=== PATIENT | male | born 1970 | race Caucasian/White ===

== ENCOUNTER 2018-10-03 05:26 | Inpatient (IN) ==
[2018-10-03] MEDS ORDERED: Chlorhexidine Gluconate 2% 1 Pack (2 Cloths) TOPICAL ONE (05:53)
[2018-10-03] MEDS ORDERED: Metoprolol Tartrate 25 MG Tablet PO ONE (05:53)
[2018-10-03] MEDS ORDERED: Sodium Chlor 0.9% Inj 500 ML IV.SIG SCH (06:00)
[2018-10-03] MEDS ORDERED: Chlorhexidine 4% Topical 120 APPLIC/120 ML Bottle TOPICAL SCH (06:00)
[2018-10-03] MEDS ORDERED: Vancomycin Inj 1,000 MG in Sodium Chlor 0.9% Inj 250 ML IV.SIG SCH (06:00)
[2018-10-03] MEDS ORDERED: ceFAZolin 2 GM Premix Inj 2 GM/50 ML PIGGYBACK IV.SIG SCH (06:00)
[2018-10-03] MEDS ORDERED: SODIUM CHLOR 0.9% IV.SIG SCH (07:30)
[2018-10-03] MEDS ORDERED: Sodium Chlor 0.9% Inj 40 ML, Bupivacaine Liposo PF 1.3% Inj 20 ML P-ARTICULR SCH ×2 (07:30)
[2018-10-03] MEDS ORDERED: TRANEXAMIC ACID IV.SIG SCH (07:30)
[2018-10-03] MEDS ORDERED: Post-op Orders (for Pharmacy) OTHER STA (08:09)
[2018-10-03] MEDS ORDERED: Bisacodyl 10 MG Supp RECTAL PRN (08:09)
--- NOTE | 2018-10-03 08:09 | P.DCO ---
- Physical Therapy Physical Therapy: Gait training (3 times per week for 2 weeks) Hip: Total hip, Protocol: Right Right Lower Extremity Weight Bearing: Weight bearing as tolerated - Certification Need for Home Health services: I have seen patient Jose E Del Real on 10/03/18. My clinical findings support the need for the requested home health care services because: Need for Home Health Services: High risk of falls Homebound Certification: I certify that my clinical findings support that this patient is homebound because: Homebound Certification: Unsteady gait/balance
[2018-10-03] MEDS ORDERED: Bupivacaine/Epinephrine Inj 0.25% 50 ML Vial ONE (08:15)
[2018-10-03] MEDS ORDERED: [UNRECOGNIZED DRUG - OTHER] P-ARTICULR SCH ×3 (09:00)
[2018-10-03] MEDS ORDERED: BUPIVACAINE LIPOSO 1.3% P-ARTICULR SCH ×3 (09:00)
[2018-10-03] MEDS ORDERED: Morphine Inj 4 MG/ML Vial IV.PUSH PRN (09:00)
[2018-10-03] MEDS ORDERED: SODIUM CHLOR 0.9% P-ARTICULR SCH ×3 (09:00)
--- NOTE | 2018-10-03 10:00 | P.OP ---
- Preoperative Diagnosis (1) Osteoarthritis of right hip - Postoperative Diagnosis (1) Osteoarthritis of right hip Date of procedure: 10/03/18 Procedure: Right total hip arthroplasty, direct anterior exposure Anesthesia: GETA, local Surgeon: Maxime Magdaleno MD Armored Car Driver: Sari Whitlock PA-C Operation and Findings: EBL: 600 cc INDICATION: This patient is a 48-year-old white male with severe osteoarthritis of the right hip. 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 Despite extensive conservative care, the patient continued to be painful and symptomatic. He presents for surgical treatment. NOTE: Sari Whitlock PA-C was present for the entire surgical procedure as my shipping assistant. In my medical opinion her skill and care was necessary for the proper management of this patient. COMPONENTS: COMPANY: [employer] CUP: [place], 56 mm, 100 series STEM: Corail, size 13, high offset HEAD: Ceramic, +1.5, /14 taper LINER: Altrex, 36, neutral PROCEDURE: This patient was brought to the operating room and anesthetized in the supine position. The patient was positioned on the [place] table with the operative leg extended and the contralateral leg held in proper position. The hip and leg was scrubbed with alcohol followed by Hibiclens followed by ChloraPrep and draped sterilely in the clean air suite. Preoperative fluoroscopic images were utilized. A templating x-ray was obtained and printed to be used during the case. A timeout was done and antibiotics were given within a routine time window. A 4 inch incision was made starting 2 cm distal and 2 cm lateral to the anterior superior iliac spine. The tensor fascia tutu fascia was identified and opened longitudinally in line with the incision. Deep retraction allowed good visualization in the interval between the tensor fascia tutu and the rectus and this was opened further. The posterior fascia was opened. Crossing vessels were coagulated appropriately. The anterior aspect of the hip capsule was identified. Retractors were placed above and below the capsule. The capsule was opened longitudinally. Stay sutures were utilized creating flaps for the anterior capsule. The femoral neck was cut at the right location and completed with an oscillating saw. The head and neck was removed and taken to the back table. The leg was externally rotated 60 degrees and traction placed on the extremity. The labrum was excised. A portion of the capsule was excised. Visibility was excellent. Retractors were positioned. Starting 6 mm from the final size reamer, we began reaming up to 1 mm from the anticipated size. This was visualized under fluoroscopy. A trial cup was positioned. This also was visualized under fluoroscopy and minor adjustments were made. The final preparation with a 56 reamer was utilized. The final cup was positioned in approximately 40 degrees of abduction and 20 degrees of forward flexion. This is visualized under fluoroscopy and was seated into the final position. Position was very satisfactory. A single hole eliminator was positioned followed by the plastic liner. The final solution was excellent. Traction was let off. The leg was brought into neutral rotation. A lifting took was positioned underneath the greater trochanter and proximal femur. The leg was maximally externally rotated and the foot drop to the floor across midline. Retractors were positioned. A box osteotome was used to gain entrance into the top of the femur. The canal was probed with a finder to ensure that we were within the canal. Successive broaching up to the final stem size was accomplished. Trial reduction showed excellent balancing. Adjustments were made. The wound was irrigated copiously and the canal irrigated. The final stem was inserted in proper orientation. A final trial reduction was performed, and the final head was impacted. The hip was reduced and with 60 degrees of external rotation the leg to be dropped to the floor without evidence of anterior subluxation. Intraoperative x-rays were obtained. Local anesthesia was utilized for a field block including posterior capsule, inferior capsule, cephalad capsule, region of the greater trochanter, tensor fascia tutu and subcutaneous tissue. The anterior capsule was repaired with interrupted #2 Tycron sutures. The fascia was run with 0 PDS on a loop. Subcutaneous tissue was approximated 2-0 Vicryl suture and skin with running intradermal 3-0 Vicryl followed by benzoin and Steri-Strips. A sterile dressing was applied. The patient was awakened and taken to the recovery room in satisfactory condition FINDINGS: There was severe osteoarthritis of the right hip. There was a detached and torn labrum in addition. Large circumferential osteophytes were noted which were removed. Final solution appeared to be excellent.
--- NOTE | 2018-10-03 10:13 | XR ---
EXAM DATE: 10/03/2018 10:04 AM EST AGE/SEX: 48 years / Male INDICATIONS: Post-op total right hip arthroplasty. CLINICAL DATA: This is the patient's initial encounter. Patient reports that signs and symptoms have been present for 1 day and indicates a pain score of Nonresponsive. MEDICAL/SURGICAL HISTORY: Non-responsive. Non-responsive. COMPARISON: No prior exams available for comparison. FINDINGS: Right total hip arthroplasty has been performed and the prosthesis appears to be adequate in position . CONCLUSION: Status post right total hip arthroplasty with prosthesis in good position. Electronically signed by: Theron Wilburn MD Board Certified Radiologist 10/03/2018 10:11 AM EST
[2018-10-03] MEDS ORDERED: *morphine SULFATE 10 MG/ML PERIprocedure ONLY ONE ×2 (10:29→10:44)
[2018-10-03] MEDS ORDERED: fentaNYL Citrate Inj 100 MCG/2 ML Ampul ONE ×2 (10:29→10:30)
[2018-10-03] MEDS: Senna/Docusate Sodium 8.6/50 MG Tablet PO SCH ×2 (11:05→21:16)
[2018-10-03] MEDS: Multivitamin/Minerals Therapeutic Tablet PO SCH ×2 (11:05→21:16)
[2018-10-03] MEDS ORDERED: *morphine SULFATE 4 MG/ML PERIprocedure ONLY ONE (11:07)
[2018-10-03] MEDS ORDERED: ceFAZolin Inj 1 GM in Sodium Chloride 0.9% Inj 100 ML IV.SIG SCH (14:00)
[2018-10-03] MEDS ORDERED: ceFAZolin 1 GM Premix Inj 1 GM/50 ML PIGGYBACK IV.SIG ONE (14:08)
[2018-10-03] MEDS: ceFAZolin Inj 1 GM in Sodium Chlor 0.9% Inj 100 ML IV.SIG SCH ×2 (14:11→21:23)
[2018-10-03] MEDS ORDERED: Temazepam 15 MG Capsule PO PRN (21:00)
--- NOTE | 2018-10-03 21:53 | P.DS ---
Date of admission: 10/03/18 05:26 Primary care physician: Julito Prasad MD Attending physician on discharge: Maxime Magdaleno Anticipated date of discharge: 10/04/18 Brief History from admission: Mr. Del Real has had ongoing right hip pain.... DS: Diagnosis - Discharge Diagnosis (1) Osteoarthritis of right hip Status: Acute DS: Medications - Discharge Medications Prescriptions: aspirin 81 mg PO BID 30 Days #60 tab hydrocodone-acetaminophen 1 tab PO Q4H PRN #42 tab PRN Reason: Acute Pain DS: Summary Hospital Course: Surgical treatment was accomplished on the day of admission without complication.. pod#1, [place], ASA, hhc - Time Spent with Patient Total time spent providing and/or coordinating discharge services: - Quality: VTE Deep Vein Thrombosis/Pulmonary Embolism Present on Admission: No Exam Vital signs: Vital Signs 10/03/18 06:17 10/03/18 10:21 10/03/18 10:23 Temperature 98.5 F 98.1 F Pulse Rate 72 72 73 Respiratory Rate 16 13 Blood Pressure 136/79 115/59 L Pulse Oximetry 97 98 100 10/03/18 10:30 10/03/18 10:45 10/03/18 11:00 Temperature Pulse Rate 68 71 77 Respiratory Rate 13 14 12 Blood Pressure 103/55 L 103/54 L Pulse Oximetry 100 93 L 98 10/03/18 11:01 10/03/18 11:15 10/03/18 11:16 Temperature Pulse Rate 68 76 74 Respiratory Rate 11 L 19 16 Blood Pressure 125/60 113/56 L Pulse Oximetry 97 99 100 10/03/18 11:30 10/03/18 11:45 10/03/18 12:00 Temperature 98.1 F Pulse Rate 70 71 74 Respiratory Rate 10 L 8 L 8 L Blood Pressure 114/57 L 117/59 L 118/56 L Pulse Oximetry 98 97 97 10/03/18 12:15 10/03/18 12:16 10/03/18 12:17 Temperature Pulse Rate 64 68 69 Respiratory Rate 13 16 10 L Blood Pressure 84/46 L 81/46 L Pulse Oximetry 93 L 95 93 L 10/03/18 12:18 10/03/18 12:21 10/03/18 12:30 Temperature Pulse Rate 69 75 74 Respiratory Rate 9 L 9 L 12 Blood Pressure 90/55 L 90/51 L 107/57 L Pulse Oximetry 93 L 95 96 10/03/18 12:45 10/03/18 13:00 10/03/18 13:15 Temperature Pulse Rate 86 91 H 71 Respiratory Rate 22 18 9 L Blood Pressure 104/64 Pulse Oximetry 96 90 L 91 L 10/03/18 13:30 10/03/18 13:45 10/03/18 14:00 Temperature Pulse Rate 62 73 79 Respiratory Rate 7 L 11 L 13 Blood Pressure 113/59 L 119/75 Pulse Oximetry 99 91 L 98 10/03/18 14:08 10/03/18 14:09 10/03/18 14:10 Temperature Pulse Rate 101 H 97 H Respiratory Rate 18 25 H Blood Pressure 108/60 89/54 L Pulse Oximetry 10/03/18 14:13 10/03/18 14:15 10/03/18 14:30 Temperature Pulse Rate 75 75 65 Respiratory Rate 13 11 L 8 L Blood Pressure 115/63 Pulse Oximetry 90 L 98 95 10/03/18 15:00 10/03/18 15:35 10/03/18 16:00 Temperature 97.9 F Pulse Rate 75 75 87 Respiratory Rate 10 L 11 L 22 Blood Pressure 119/74 132/66 Pulse Oximetry 98 93 L 97 10/03/18 17:21 Temperature 97.8 F Pulse Rate 77 Respiratory Rate 18 Blood Pressure 128/71 Pulse Oximetry 95 Intake & Output 10/03/18 10/03/18 10/04/18 06:59 18:59 06:59 Intake Total 100 / 100 Balance 100 / 100 Weight 116.8 kg Intake: IV 100 / 100 Ancef Inj 1 GM In NS Inj 100 ML 100 / 100 @ 200 mls/hr IV.SIG Q6H [facility] Rx #:[id number] Other: Date of Last Bowel Movement 10/03/18 Weight On Admission 116.8 kg Results Labs on day of discharge: Labs from last 24 hours 10/03/18 06:08 Blood Type O Positive Blood Type Recheck Required Antibody Screen Negative - Impressions ITS Impressions Hip X-Ray 10/03/18 00:00 CONCLUSION: Status post right total hip arthroplasty with prosthesis in good position. Discharge Plan - Discharge Disposition Patient Disposition: W/Home Health Service - Discharge Condition Condition: Good - Discharge Order Discharge Orders: Discharge Order (Routine); Ordered 01/09/19 Ordered By: Maxime C Gillespy - Physicians Team Primary Care Provider: Julito Prasad Attending Provider: Maxime Magdaleno - Rxs /Orders / Referrals /Forms Prescriptions: New aspirin 81 mg Tablet,Chewable 81 mg PO BID 30 Days Qty: 60 RF: 0 hydrocodone-acetaminophen 10-325 mg Tablet 1 tab PO Q4H PRN (Reason: Acute Pain) Qty: 42 RF: 0 No Action No Known Home Medications Referrals: Julito Prasad MD [Primary Care Provider] - See Instructions - Post Discharge Care Plan Care Plan Goals: Discharge Care Plan Goals for RIGHT Total Hip Replacement You had a hip replacement surgery. This means your natural hip was replaced with an artificial joint (prosthesis). You may be recovering at home or in a rehabilitation facility. Either way, you must take care of your new hip. Here are some goals to help you heal well. Directions to Meet your Goals: 1. Activity & Exercises: * Take pain medicine as directed by your doctor. * Dont drive until your doctor says its OK. And never drive while taking opioid pain medicine. * Wear the support stockings you were given in the hospital as directed by your surgeon. * Dont sit for more than 30 to 45 minutes at one time. * Dont lean forward while sitting. * Dont cross your legs. * Keep your feet flat on the floor. Dont turn your foot or leg inward. This stresses your hip joint. * If needed, use an elevated toilet seat for 4 weeks after surgery. * Nap if you are tired, but dont stay in bed all day. * Sit on a firm cushion when you ride in a car and avoid sitting too low. Try not to bend your hip too much when getting in and out of the car. 2. Prevent Falls/Injury: * Follow your doctors orders regarding how much weight to put on the affected leg. * Dont bend at the hip when you bend over. Don't bend at the waist to put on socks and shoes. And avoid picking up items from the floor. * Use a cane, crutches, a walker, or handrails until your balance, flexibility, and strength improve. And remember to ask for help from others when you need it. * Free up your hands so that you can use them to keep balance. Use a timbo pack , apron, or pockets to carry things. * Arrange your household to keep the items you need handy. Keep everything else out of the way. * Remove items that may cause you to fall, such as throw rugs and electrical cords. * Use nonslip bath mats, grab bars, an elevated toilet seat, and a shower chair in your bathroom * Sit on a shower stool or chair when you shower to keep from falling. 3. Precautions: * Prevent infection. Any infection will need to be treated immediately. Call your doctor right away if you think you might have an infection. * Tell your dentist that you have an artificial joint and take antibiotics as prescribed before any dental work. * Tell all your healthcare providers about your artificial joint before any medical procedure. * Maintain a healthy weight. Get help to lose any extra pounds. Added body weight puts stress on the joints. 4. Incision Care: * Prevent infection by washing your hands often. If an infection occurs, it will need to be treated right away. * Call your doctor right away if you think you may have an infection. Symptoms include a fever or an incision that leaks white, green, or yellow fluid. * Don't soak your incision in water until your doctor says its OK. This means no hot tubs, bathtubs, or swimming pools. * Follow your doctor's instructions for changing the dressing. * Dont rub the incision, or apply creams or lotions to it. * If you notice any redness or drainage around the bandage site, contact your surgeon's office immediately. 5. Follow-Up: Do Not miss your follow-up appointment. Keep up with all your appointments and yearly check ups When to call your doctor: Call your doctor right away if you have: Hip pain gets worse Pain or swelling in your calf or leg not related to your incision Tenderness or redness in your calf Fever of 100.4F (38C) or higher, or as directed by your healthcare provider Shaking chills Swelling or redness at the incision site gets worse Fluid draining from the incision Call 911: Call 911 right away if you have: Chest pain Shortness of breath Any pain or tenderness in your calf
[2018-10-04] MEDS: ceFAZolin Inj 1 GM in Sodium Chlor 0.9% Inj 100 ML IV.SIG SCH ×3 (01:39→09:51)
[2018-10-04 07:00] LABS: Hematocrit 29.6 % (39.0-51.0)
[2018-10-04 07:08] VITALS: RESP 17
[2018-10-04 09:31] VITALS: BP 119/56; PULSE 113; TEMP 98.5; O2SAT 95
[2018-10-04] MEDS: Senna/Docusate Sodium 8.6/50 MG Tablet PO SCH (09:49)
[2018-10-04] MEDS: Multivitamin/Minerals Therapeutic Tablet PO SCH (09:49)
--- NOTE | 2018-10-04 13:58 | P.PNOP ---
Subjective Interval history: He is doing well. He has already walked the hallway a few times this morning. He denies any nausea. He states he has pain in the hip but feels good. No new CP or SOB. He has questions about surgery. Physical Exam Vital signs: Vital Signs 10/03/18 14:00 10/03/18 14:08 10/03/18 14:09 Temperature Pulse Rate 79 101 H 97 H Respiratory Rate 13 18 25 H Blood Pressure 119/75 108/60 Pulse Oximetry 98 10/03/18 14:10 10/03/18 14:13 10/03/18 14:15 Temperature Pulse Rate 75 75 Respiratory Rate 13 11 L Blood Pressure 89/54 L 115/63 Pulse Oximetry 90 L 98 10/03/18 14:30 10/03/18 15:00 10/03/18 15:35 Temperature Pulse Rate 65 75 75 Respiratory Rate 8 L 10 L 11 L Blood Pressure 119/74 Pulse Oximetry 95 98 93 L 10/03/18 16:00 10/03/18 17:21 10/03/18 20:20 Temperature 97.9 F 97.8 F 99.2 F Pulse Rate 87 77 94 H Respiratory Rate 22 18 20 Blood Pressure 132/66 128/71 136/64 Pulse Oximetry 97 95 95 10/03/18 23:58 10/04/18 04:00 10/04/18 08:30 Temperature 98.6 F 99.3 F 98.5 F Pulse Rate 111 H 112 H 113 H Respiratory Rate 19 17 17 Blood Pressure 100/55 L 120/51 L 119/56 L Pulse Oximetry 95 96 95 Intake & Output 10/03/18 10/04/18 10/04/18 18:59 06:59 18:59 Intake Total 1880 / 1880 Output Total 1475 / 1475 Balance 405 / 405 Weight 121.6 kg Intake: IV 1400 / 1400 LR 1000 mL Inj 1,000 ML @ 80 1000 / 1000 mls/hr IV.CONT .[id number] [facility] Rx# :[id number] Ancef Inj 1 GM In NS Inj 100 ML 400 / 400 @ 200 mls/hr IV.SIG Q6H [facility] Rx #:[id number] Oral 480 / 480 Output: Urine 1475 / 1475 Other: Date of Last Bowel Movement 10/03/18 10/03/18 10/03/18 Narrative: Standing at bedside with 2 family members No acute distress RLE Hip dressing c/d/i, no drainage, mild swelling, no erythema +motor at/ehl distal, +sens, +nvi Neg homans - Constitutional no acute distress Results - Labs CBC & Chem 7: 10/04/18 05:19 Laboratory Results - last 24 hr 10/04/18 05:19 Hgb 10.0 L Hct 29.6 L - Procedures Right total hip arthroplasty, direct anterior approach Assessment and Plan - Ortho Post Op Day # 1 - Problem List (1) Osteoarthritis of right hip Code(s): M16.11 - Unilateral primary osteoarthritis, right hip Status: Acute - Assessment and Plan pod#1 s/p R GARY, anterior Ortho stable. Doing well. Ok to d/c home w c after PT class today. PO pain control as needed. ASA 81mg bid. Hold dressing changes unless saturated. PT - WBAT RLE. GARY protocol. Ice bid as tolerated. Compression stockings bilaterally for 2 weeks. Follow up in 2 weeks as scheduled.
== END 2018-10-04 14:15 | disposition home health service (06) | DRG 470 ==
LOC: HSDI 05:26 → N06 16:25
PROVIDERS: ADMIT Orthopaedic Surgery Orthopaedic Surgery of the Spine; ATTEND Orthopaedic Surgery Orthopaedic Surgery of the Spine
DX: M16.11 Unilateral primary osteoarthritis, right hip
CPT/HCPCS: 73502; 76000; 85014; 85018; 86850; 86900; 86901; 94150; 97110; 97116; 97150; 97161; C1776; J0690; J1580; J2250; J2270; J3010; J3370; J7050; J7120